=== PATIENT | male | born 1970 | race Caucasian/White ===

== ENCOUNTER 2017-07-23 21:17 | Emergency (ER) | payer OTHER ==
[~2017-07-23] VITALS: Ht 190.5 cm; Wt 125.2 kg
[2017-07-23 21:17] VITALS: BP 169/91
[2017-07-23] MEDS ORDERED: LIDO:MAALOX 1:1 20 ML SINGLE DOSE ONE (21:29)
[2017-07-23] MEDS ORDERED: LIDO:MAALOX 1:1 20 ML SINGLE DOSE PO ONE (21:30)
[2017-07-23] MEDS ORDERED: ONDANSETRON PF 4 MG/2 ML VIAL. IV ONE (22:00)
[2017-07-23] MEDS ORDERED: FAMOTIDINE 20 MG/2 ML VIAL IVP ONE (22:00)
[2017-07-23 22:24] LABS: BASO % 0 % (0-3); EOS # 0.1 x10^3/uL (0.0-0.7); EOS % 1 % (0-3); HEMATOCRIT 46.6 % (39.0-53.0); HEMOGLOBIN 16.1 g/dL (13.0-17.5); LYMPH # 2.4 x10^3/uL (1.0-4.8); LYMPH % 22 % (24-48); MEAN CORPUSCULAR HEMOGLOBIN 30 pg (25-35); MEAN CORPUSCULAR HGB CONC 35 g/dL (31-37); MEAN CORPUSCULAR VOLUME 88 fL (79-100); MONO # 0.9 x10^3/uL (0.0-1.1); MONO % 8 % (0-9); NEUT # 7.5 x10^3uL (1.8-7.7); NEUT % 69 % (31-73); PLATELET COUNT 212 x10^3/uL (140-400); RED CELL DISTRIBUTION WIDTH 13.2 % (11.5-14.5); WHITE BLOOD COUNT 10.9 x10^3/uL (4.0-11.0)
[2017-07-23 22:37] LABS: ALBUMIN 4.5 g/dL (3.4-5.0); ALBUMIN/GLOBULIN RATIO 1.3 (1.0-1.7); CALCIUM 9.6 mg/dL (8.5-10.1); CREATININE 1.1 mg/dL (0.7-1.3); GFR 71.1; POTASSIUM 3.9 mmol/L (3.5-5.1); TOTAL PROTEIN 7.9 g/dL (6.4-8.2)
[2017-07-23] MEDS ORDERED: CONTRAST GIVEN MC PRN (23:00)
[2017-07-23] MEDS ORDERED: IOHEXOL 300 MG/ML 75 ML VIAL. IV ONE (23:30)
--- NOTE | 2017-07-23 23:48 | RAD ---
CT abdomen and pelvis with contrast History: Epigastric pain, abdominal fullness/distention Technique: After the administration of intravenous contrast, CT imaging was performed of the abdomen and pelvis. No oral contrast was given as per request. Multiplanar images are reviewed. Exposure: One or more of the following individualized dose reduction techniques were utilized for this examination: 1. Automated exposure control 2. Adjustment of the mA and/or kV according to patient size 3. Use of iterative reconstruction technique. Contrast: 75 cc Omnipaque 300 Comparison: None Findings: There is no significant abnormality of the visualized lung bases. There is no significant abnormality of the liver, spleen, pancreas, adrenal glands. Both kidneys enhance without hydronephrosis. Tiny 3 mm hypodense lesion of the mid left kidney is too small to otherwise accurately characterize.Gallbladder is present without obvious intraluminal abnormality by CT. Accurate evaluation of bowel is limited without oral contrast. There is no significant inflammatory change adjacent to the bowel. There is no evidence of bowel obstruction, free fluid, or free air. There is some gastric distention. There reportedly has been appendectomy. There is [id number] diverticulosis of the more distal descending colon as well as sigmoid colon without evidence of diverticulitis. The bladder has a normal configuration. There is no significant lymphadenopathy. There is somewhat lytic lesion of the right L3 vertebral body. There is likely hemangioma of the right L1 vertebral body. Impression: 1. There is some gastric distention. There is colonic diverticulosis without evidence of diverticulitis. 2. Relatively foci of the L3 and L1 vertebral bodies are otherwise difficult to characterize, possibly hemangiomas although nonspecific findings. MRI characterization could be beneficial if clinically needed. Electronically signed by: Enoc Jose MD (07/23/2017 11:45 PM) [facility]
--- NOTE | 2017-07-24 04:07 | ED.ADGEN ---
Past History Past Medical History: GERD Past Surgical History: No Surgical History Alcohol Use: Occasionally Drug Use: None Adult General Chief Complaint Chief Complaint Epigastric pain HPI HPI Patient is a 47-year-old male presents with intermittent epigastric pain for the past 3 nights. Patient has since somewhere episodes several months ago which resolved prior to diagnosis being made. Pain is described as sharp, cramping. It is nonradiating. It is worse at night. Patient reports mild nausea no vomiting. No chest pain shortness breath or palpitations. Patient denies exertional symptoms. No prior abdominal surgeries. No fevers chills or sweats. No constipation or diarrhea. No other acute symptoms or complaints. Review of Systems Review of Systems ROS as per HPI. All other ROS are negative. Current Medications Current Medications Current Medications Medications (Trade) Dose Ordered Sig/Marley Start Time Stop Time Status Last Admin Dose Admin Famotidine (Pepcid) 20 mg 1X ONCE 07/23/17 22:00 07/23/17 22:01 DC 07/23/17 22:08 20 MG Info (Do NOT chart on this entry -- for MONITORING) 1 each PRN DAILY PRN 07/23/17 23:00 07/24/17 00:26 DC Iohexol (Omnipaque 300 Mg/ml) 75 ml 1X ONCE 07/23/17 23:30 07/23/17 23:31 DC 07/23/17 23:26 75 ML Multi-Ingredient Mouthwash/Gargle (Gi Cocktail) 20 ml 1X ONCE 07/23/17 21:30 07/23/17 21:37 DC 07/23/17 21:33 20 ML Ondansetron HCl (Zofran) 4 mg 1X ONCE 07/23/17 22:00 07/23/17 22:01 DC 07/23/17 22:07 4 MG Allergies Allergies Allergies Coded Allergies Type Severity Reaction Last Updated Verified No Known Drug Allergies 07/23/17 No Physical Exam Physical Exam Constitutional: Well developed, well nourished, no acute distress, non-toxic appearance. [] HENT: Normocephalic, atraumatic, bilateral external ears normal, oropharynx moist, no oral exudates, nose normal. [] Eyes: PERRLA, EOMI, conjunctiva normal, no discharge. [] Neck: Normal range of motion, no tenderness, supple, no stridor. [] Cardiovascular:Heart rate regular rhythm, no murmur [] Lungs & Thorax: Bilateral breath sounds clear to auscultation [] Abdomen: Bowel sounds normal, soft, epigastric pain/tenderness, no masses, no pulsatile masses. [] Skin: Warm, dry, no erythema, no rash. [] Back: No tenderness, no CVA tenderness. [] Extremities: No tenderness, no cyanosis, no clubbing, ROM intact, no edema. [] Neurologic: Alert and oriented X 3, normal motor function, normal sensory function, no focal deficits noted. [] Psychologic: Affect normal, judgement normal, mood normal. [] Current Patient Data Vital Signs Vital Signs Date Time Temp Pulse Resp B/P (MAP) Pulse Ox O2 Delivery O2 Flow Rate FiO2 07/23/17 21:17 98.4 98 18 97 Room Air Lab Results Laboratory Tests Test 07/23/17 21:58 White Blood Count 10.9 x10^3/uL (4.0-11.0) Red Blood Count 5.30 x10^6/uL (4.30-5.70) Hemoglobin 16.1 g/dL (13.0-17.5) Hematocrit 46.6 % (39.0-53.0) Mean Corpuscular Volume 88 fL (79-100) Mean Corpuscular Hemoglobin 30 pg (25-35) Mean Corpuscular Hemoglobin Concent 35 g/dL (31-37) Red Cell Distribution Width 13.2 % (11.5-14.5) Platelet Count 212 x10^3/uL (140-400) Neutrophils (%) (Auto) 69 % (31-73) Lymphocytes (%) (Auto) 22 % (24-48) L Monocytes (%) (Auto) 8 % (0-9) Eosinophils (%) (Auto) 1 % (0-3) Basophils (%) (Auto) 0 % (0-3) Neutrophils # (Auto) 7.5 x10^3uL (1.8-7.7) Lymphocytes # (Auto) 2.4 x10^3/uL (1.0-4.8) Monocytes # (Auto) 0.9 x10^3/uL (0.0-1.1) Eosinophils # (Auto) 0.1 x10^3/uL (0.0-0.7) Basophils # (Auto) 0.0 x10^3/uL (0.0-0.2) D-Dimer (Malena) 0.37 mg/L (0.00-0.50) Sodium Level 142 mmol/L (136-145) Potassium Level 3.9 mmol/L (3.5-5.1) Chloride Level 103 mmol/L (98-107) Carbon Dioxide Level 30 mmol/L (21-32) Anion Gap 9 (6-14) Blood Urea Nitrogen 20 mg/dL (8-26) Creatinine 1.1 mg/dL (0.7-1.3) Estimated GFR (Cockcroft-Gault) 71.1 BUN/Creatinine Ratio 18 (6-20) Glucose Level 141 mg/dL (70-99) H Calcium Level 9.6 mg/dL (8.5-10.1) Total Bilirubin 1.0 mg/dL (0.2-1.0) Aspartate Amino Transferase (AST) 84 U/L (15-37) H Alanine Aminotransferase (ALT) 81 U/L (16-63) H Alkaline Phosphatase 83 U/L (46-116) Troponin I Quantitative < 0.017 ng/mL (0-0.055) Total Protein 7.9 g/dL (6.4-8.2) Albumin 4.5 g/dL (3.4-5.0) Albumin/Globulin Ratio 1.3 (1.0-1.7) Lipase 138 U/L (73-393) EKG EKG [EKG: Normal sinus rhythm, no acute ST-T wave changes.] Radiology/Procedures Radiology/Procedures [T abdomen pelvis: Distended stomach, possible lytic lesions L3 L1 per radiology report] Course & Med Decision Making Course & Med Decision Making Pertinent Labs and Imaging studies reviewed. (See chart for details) [Symptoms improved with treatment in the emergency department. Of note, on CT the patient's to stomach is distended despite last eating greater than 11 hours or to ED arrival. Suspect symptoms are related to fluid gastric emptying and swelling or possible peptic ulcer disease. Will start on supportive regimen with PCP follow-up. Return precautions reviewed. Discussed with patient the importance of following up regarding possible lytic/cancerous lesions. Patient verbalizes understanding standing and increase to follow-up with PCP regarding these findings] Final Impression Final Impression [1. epigastric pain 2. Abnormal CT lumbar spine] Problems: Dragon Disclaimer Dragon Disclaimer This electronic medical record was generated, in whole or in part, using a voice recognition dictation system. TAVARES LOTT DO Jul 24, 2017 04:07
--- NOTE | 2017-07-24 05:57 | EKG ---
[address] [address] Test Date: 2017-07-23 Test Time: 21:37:10 Pat Name: ADRIANNE FRANKLIN Department: Room: Gender: M [employer] Operator: : [id number] Requested By: TAVARES LOTT Order Number: [id number] Reading MD: Measurements Intervals [place] Rate: 96 P: 61 ND: 160 QRS: -13 QRSD: 92 T: 46 QT: 344 QTc: 435 Interpretive Statements SINUS RHYTHM LEFTWARD AXIS QRS(T) CONTOUR ABNORMALITY CONSIDER ANTEROLATERAL MYOCARDIAL DAMAGE POSSIBLY ABNORMAL ECG RI6.01 No previous ECG available for comparison
--- NOTE | 2017-07-24 07:33 | RAD ---
Chest, 2 views, 07/23/2017: History: Upper abdominal pain The heart size and pulmonary vascularity are within normal limits. No pulmonary infiltrates are seen. A small rounded opacity projected over the right base is shown to be due to a focal sclerotic lesion in the anterior aspect of the fifth rib on the current CT study. This is most likely a bone island. There is no evidence of pleural fluid. IMPRESSION: No acute cardiopulmonary abnormality is detected.
== END 2017-07-24 00:13 | disposition home or self-care (01) ==
LOC: ER 21:17
DX: R10.13 Epigastric pain (principal); R93.8 Abnormal findings on diagnostic imaging of other specified body structures; K21.9 Gastro-esophageal reflux disease without esophagitis
CPT/HCPCS: 36415; 71020; 74177; 80053; 83690; 84484; 85025; 85379; 93005; 96374; 96375; 99285; J2405; Q9967; S0028

== ENCOUNTER → 2017-08-02 | Outpatient (CLI) | payer OTHER ==
[2017-07-23 21:17] VITALS: BP 169/91
--- NOTE | 2017-08-02 10:44 | RAD ---
Gastric Emptying Scintigraphy: . Radiopharmaceutical: 2.0 mCi Tc-99m sulfur colloid mixed with solid meal was administered orally. History: Bloating, epigastric pain for 5 months, nausea. Findings: There is no significant gastric emptying of the radiotracer from the stomach. The T half is 470 minutes. Impression Significant delay in gastric emptying.
== END | disposition home or self-care (01) ==
LOC: NM 07:54
PROVIDERS: ATTEND Internal Medicine Gastroenterology
DX: R10.13 Epigastric pain (principal); R14.0 Abdominal distension (gaseous); R11.2 Nausea with vomiting, unspecified
CPT/HCPCS: 78264; A9541

== ENCOUNTER → 2019-03-18 | Outpatient (CLI) | payer OTHER ==
[2019-03-18 08:57] LABS: ALBUMIN 3.6 g/dL (3.4-5.0); ALBUMIN/GLOBULIN RATIO 1.1 (1.0-1.7); CALCIUM 8.6 mg/dL (8.5-10.1); CREATININE 0.8 mg/dL (0.7-1.3); GFR 102.3; POTASSIUM 4.3 mmol/L (3.5-5.1); TOTAL BILIRUBIN 0.5 mg/dL (0.2-1.0)
[2019-03-18 19:06] LABS: ESTRADIOL LEVEL 23.4 pg/mL (7.6-42.6); TESTOSTERONE TOTAL 283 ng/dL (264-916)
[2019-03-20 13:08] LABS: DHEA 179 ng/dL (31-701)
== END | disposition home or self-care (01) ==
LOC: LAB 07:19
PROVIDERS: ATTEND General Practice
DX: R79.89 Other specified abnormal findings of blood chemistry (principal)
CPT/HCPCS: 36415; 80053; 82626; 82670; 82679; 84403

== ENCOUNTER → 2020-07-18 | Outpatient (CLI) | payer OTHER ==
--- NOTE | 2020-07-18 09:06 | RAD ---
Examination: CT ABDOMEN PELVIS WO CONTRAST History: ABDOMINAL PAIN Comparison/Correlation: 07/23/2017 CT abdomen and pelvis with contrast Findings: Axial images of the abdomen and pelvis were obtained without contrast. Sagittal and coronal images were provided. Visualized lung bases are clear. Diffuse fatty infiltration of the liver is mild. Spleen, pancreas, and adrenal glands are normal. There is a 1.3 cm diameter calculus in the gallbladder. Additional smaller calculi also. Present. No biliary dilatation or inflammatory findings about the gallbladder. Mild diverticulosis is present. There is stranding about the mid descending duodenum where a diverticulum is present on axial image 72. Minimal thickening of the left lateral conal fascia is noted at this level. No loculated collection. No extraluminal gas. No radiopaque collecting system calculi. Urinary bladder is decompressed. Small umbilical hernia contains omental fat. No ascites or pelvic free fluid. No bowel obstruction. Bony structures are unremarkable for patient's age. Mild concentric disc bulge at L4-5 is present with ligamentum flavum hypertrophy. Mild spinal canal stenosis is present. Neural foraminal narrowing is at this level. Lucency at L1 and L3 vertebral bodies similar to previous exam most compatible with benign vertebral body hemangiomas are unchanged. Impression: Acute mid descending colon level diverticulitis. No abscess collection or extraluminal gas. There are no radiopaque collecting system calculi. PQRS Compliance Statement: One or more of the following individualized dose reduction techniques were utilized for this examination: 1. Automated exposure control 2. Adjustment of the mA and/or kV according to patient size 3. Use of iterative reconstruction technique Electronically signed by: Al Reyes MD (07/18/2020 9:03 AM) [id number]
== END | disposition home or self-care (01) ==
LOC: PMG 08:08
PROVIDERS: ATTEND Physician Assistant Medical
DX: K57.10 Diverticulosis of small intestine without perforation or abscess without bleeding (principal); K80.20 Calculus of gallbladder without cholecystitis without obstruction; K42.9 Umbilical hernia without obstruction or gangrene; K76.0 Fatty (change of) liver, not elsewhere classified; M48.061 Spinal stenosis, lumbar region without neurogenic claudication
CPT/HCPCS: 74176

== ENCOUNTER → 2021-09-08 | Outpatient (CLI) | payer OTHER ==
[~2021-09-08] MED LIST: IOHEXOL 240 MG/ML 50ML VIAL. ONE; IOHEXOL 240 MG/ML 50ML VIAL. PO ONE; IOHEXOL 300 MG/ML 75 ML VIAL. IV ONE
--- NOTE | 2021-09-08 09:53 | RAD ---
Axial CT of the abdomen and pelvis were obtained after the administration of 75 cc Omnipaque 300. Ora l contrast was also administered. Coronal and sagittal reformats are also available. Indication: Left lower quadrant pain with history of diverticulitis.. Comparison: 07/18/2020. Findings: The lung bases are clear. The heart is unenlarged. Liver, spleen, gallbladder adrenals kidneys and pancreas are unremarkable in appearance. Gallstones a re reidentified in the gallbladder without evidence of cholecystitis. The stomach, small and large bowel are nondistended. There is sigmoid diverticulitis in the proximal sigmoid colon. No free air or surrounding fluid collection is identified. The prostate gland is not e nlarged. The abdominal aorta is nonaneurysmal. The portal, superior mesenteric and splenic veins are normal in appearance. There are age-appropriate degenerative changes in the lumbar spine. IMPRESSION: 1. Findings consistent with sigmoid diverticulitis. No abscess or free air is identified. Exposure: One or more of the following individualized dose reduction techniques were utilized for thi s examination: 1. Automated exposure control 2. Adjustment of the mA and/or kV according to patient size 3. Use of iterative reconstruction technique Electronically signed by: Riccardo Ibarra MD (09/08/2021 9:50 AM) [id number]
== END ==
LOC: RAD 07:52
PROVIDERS: ATTEND Nurse Practitioner Family
DX: K80.20 Calculus of gallbladder without cholecystitis without obstruction (principal); M47.816 Spondylosis without myelopathy or radiculopathy, lumbar region; Z87.19 Personal history of other diseases of the digestive system
CPT/HCPCS: 74177; Q9967

== ENCOUNTER → 2021-10-09 | Outpatient (CLI) | payer OTHER ==
--- NOTE | 2021-10-09 08:40 | RAD ---
XR FOOT_RIGHT 3 VIEWS DATE: 10/09/2021 7:36 AM INDICATION: HEAVY PIECE OF WOOD LANDED ON TOP OF FOOT NEAR TARSALS COMPARISON: None. FINDINGS: Bones: There is no evidence of acute fracture or dislocation. Os naviculare. Joints: The joint spaces are normal. Miscellaneous: None. IMPRESSION: No evidence of acute fracture. Electronically signed by: Enoc Ny MD (10/09/2021 8:37 AM) [id number]
== END ==
LOC: PMG 07:28
PROVIDERS: ATTEND Nurse Practitioner Family
DX: S99.921A Unspecified injury of right foot, initial encounter (principal); X58.XXXA Exposure to other specified factors, initial encounter; Y93.89 Activity, other specified; Y92.89 Other specified places as the place of occurrence of the external cause; Y99.8 Other external cause status
CPT/HCPCS: 73630